=== PATIENT | female | born 1975 | race Caucasian/White ===

== ENCOUNTER → 2024-05-23 17:33 | Outpatient (REF) | payer OTHER, SELFPAY | LOC: WDC 17:33 | PROVIDERS: ATTENDING PHYSICIAN Obstetrics & Gynecology; FAMILY PHYSICIAN Internal Medicine | DX: Z12.31 Encounter for screening mammogram for malignant neoplasm of breast (principal) | CPT/HCPCS: 77063; 77067 ==

== ENCOUNTER → 2024-06-28 08:17 | Outpatient (REF) | payer OTHER, SELFPAY | LOC: WDC 08:17 | PROVIDERS: ATTENDING PHYSICIAN Nurse Practitioner Family | DX: R59.0 Localized enlarged lymph nodes (principal); N64.4 Mastodynia | CPT/HCPCS: 76642 ==

== ENCOUNTER → 2024-11-17 11:26 | Outpatient (REF) | payer OTHER, SELFPAY | LOC: RAD 11:26 | PROVIDERS: ATTENDING PHYSICIAN Internal Medicine | DX: M79.89 Other specified soft tissue disorders (principal) | CPT/HCPCS: 73630 ==

== ENCOUNTER 2024-11-22 17:39 | Emergency (ER) | payer OTHER, SELFPAY ==
[2024-11-22 17:41] VITALS: BP 145/86
--- NOTE | 2024-11-22 19:35 | ED.GENMED ---
History of Present Illness
General
Chief Complaint: DVT/Possible Blood Clot
Time Seen by Provider: 11/22/24 19:35
History of Present Illness
History of Present Illness:
TIME OF INITIAL ENCOUNTER: 7:40 PM
HPI: Patient presents with pain and swelling to the right ankle now with pain into the right calf. She reportedly had a negative x-ray recently. She has no shortness of breath. There is no associated erythema. There is been no trauma.
EXAM:
GENERAL: Well appearing in no distress
HEENT: Moist oral mucosa
NEUROLOGIC: Excellent strength all extremities, no obvious coordination deficits
PSYCHIATRIC: Appropriate mental status, normal insight and judgement
EXTREMITIES: There is minimal if any edema noted at the right ankle/right calf. Cap refill appears slightly decreased however it is bilateral and she reports no significant foot pain.
SKIN: No evidence of cellulitis
NUMBER AND COMPLEXITY OF PROBLEMS ADDRESSED AT THE ENCOUNTER
� Chronic conditions affecting care: No significant past medical history, has had a
� Acute Exacerbation and/or Progression of Chronic Illness: This is an acute problem
� Differential Diagnosis includes: Venous insufficiency, lymphedema, no evidence of DVT by ultrasound
AMOUNT AND/OR COMPLEXITY OF DATA TO BE REVIEWED AND ANALYZED
� I performed an independent evaluation of and my interpretation is:
EKG:
CT:
X-rays:
Laboratory Studies:
Other: Ultrasound imaging shows no DVT
� Review of other/old records:
� Clinical information was obtained by an independent historian: I spoke to mother at bedside
� Prescriptions/Medications Considered but not given:
� Further testing considered but not performed:
RISK OF COMPLICATIONS AND/OR MORBIDITY OR MORTALITY OF PATIENT MANAGEMENT
� Social determinants of health affecting care: Lives at home
� Discussion with other providers:
� Escalation of care including admission/observation vs risk of discharge considered: Ultrasound and physical exam reassuring. Recommend to try to keep the leg elevated and also try to use compression stockings if swelling
persists.
ANY OTHER UPDATES:
Phy Exam
Physical Exam
Physical Exam:
See HPI
Course
Orders/Labs/Results
Orders:
Orders
11/22/24 17:43
Legs, Right US [US Periph Venous LOWER Ext RT] Urgent
Comment:
Reason For Exam: pain to calf
Vital Signs
Initial and Last Documented VS:
Initial Vital Signs
Temp Pulse Resp BP Pulse Ox
36.6 C 63 16 145/86 99
11/22/24 17:41 11/22/24 17:41 11/22/24 17:41 11/22/24 17:41 11/22/24 17:41
Last Documented Vital Signs
Temp Pulse Resp BP Pulse Ox
36.6 C 63 16 145/86 99
11/22/24 17:41 11/22/24 17:41 11/22/24 17:41 11/22/24 17:41 11/22/24 17:41
*Critical Care Note
Total Time (30-74mins, 75-104mins- exclusive of procedures): Not Applicable
ED Attending Note
-
Portions of this chart may have been created with voice recognition software.� Occasional wrong word or��sound alike� substitutions may have occurred due to the inherent limitations of voice recognition software.
Discharge Plan
Departure
Patient Disposition: Home (Routine Discharge)
Date of Disposition: 11/22/24
Time of Disposition: 19:48
Patient with high blood pressure during this ER visit?: Yes
Discharge Problem:
Pain of right calf
Instructions: BLOOD PRESSURE
Referrals:
MATEO LUBIN [Other]
Activity Restrictions/Additional Instructions:
The x-ray that was obtained on November 17 shows a very small heel spur but this does not appear to be contributing to your symptoms. Remainder of the foot x-ray was unremarkable. This also included most of the ankle as well. The ultrasound from today
shows no sign of blood clot and no other abnormality. Try to keep the leg elevated is much as possible. Consider using compression stockings as well. Also consider using Motrin periodically.
Interventions
Interventions:
*Risk Screen - Suicide Last Done: 11/22/24 17:42
*Neglect/Abuse Screening Last Done: 11/22/24 17:42
Discharge Date and Time
Print Language: [place]
== END 2024-11-22 20:15 | disposition home or self-care (01) ==
LOC: EMR 17:39
PROVIDERS: EMERGENCY PHYSICIAN Emergency Medicine
DX: M79.661 Pain in right lower leg (principal); R60.0 Localized edema
CPT/HCPCS: 99284; 93971

== ENCOUNTER → 2025-02-03 09:08 | Outpatient (REF) | payer OTHER, SELFPAY | LOC: HWRCS 09:08 | PROVIDERS: ATTENDING PHYSICIAN Internal Medicine Cardiovascular Disease; FAMILY PHYSICIAN Internal Medicine | DX: R00.2 Palpitations (principal); R60.0 Localized edema | CPT/HCPCS: 93306 ==

== ENCOUNTER → 2025-05-24 17:20 | Outpatient (REF) | payer OTHER, SELFPAY | LOC: WDC 17:20 | PROVIDERS: ATTENDING PHYSICIAN Obstetrics & Gynecology; FAMILY PHYSICIAN Internal Medicine | DX: Z12.31 Encounter for screening mammogram for malignant neoplasm of breast (principal) | CPT/HCPCS: 77063; 77067 ==